=== PATIENT | male | born 1950 | race Caucasian/White ===

== ENCOUNTER 2017-02-23 19:17 | Emergency (ER) | payer MEDICARE, MEDICAID ==
[~2017-02-23] VITALS: Ht 177.8 cm; Wt 124.0 kg
[2017-02-23 19:30] VITALS: Ht 177.8 cm; Wt 124.0 kg
[2017-02-23] MEDS ORDERED: ONDANSETRON (ODT) 4 MG TAB ODT STA (20:48)
[2017-02-23] MEDS ORDERED: HYDROCODONE/APAP (5/325) TAB PO ONE (21:00)
--- NOTE | 2017-02-23 22:05 | RADRPT ---
PROCEDURE: CT Brain without contrast. CLINICAL INDICATION: Headache TECHNIQUE: A CT of the brain was performed on a multidetector CT scanner utilizing axial sections from the skull base through the vertex without contrast. Images were reviewed on a high-resolution [employer] workstation. Exam CTDI = 43.38 mGy and the DLP = 720.23 mGy-cm. One or more of the following dose reduction techniques were used: Automated exposure control Adjustment of the mA and/or kV according to patient size. Use of iterative reconstruction technique. COMPARISON: None available FINDINGS: Mild diffuse cerebral and cerebellar atrophy with a slight central predominance is present. There i s proportionate dilatation of the ventricular system and sulci in a symmetric fashion. There is prom inence of the extraaxial spaces secondary to atrophy. There is no evidence of intracranial hemorrhag e, mass effect or midline shift. No abnormal intra-axial or extra-axial fluid collections are seen. The density of the brain is normal and the reilly/white matter differentiation is well preserved. M ild patchy diffuse deep white matter microangiopathic ischemic change is seen. The osseous struct ures are unremarkable. Paranasal sinuses are clear. IMPRESSION: 1. No intracranial hemorrhage, mass effect or midline shift. 2. Mild generalized atrophy with slight central predominance. Mild microangiopathic ischemic magdaleno e. RPTAT: HHO .Gayle Gómez MD, Date Time Electronically viewed and signed by .Gayle Gómez MD, on 02/23/2017 22:05 .O/
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
[2017-02-23] MEDS ORDERED: NAPR-260 PO (22:20)
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
== END 2017-02-23 22:26 | disposition home or self-care (01) ==
LOC: FTE 19:17
DX: S19.9XXA Unspecified injury of neck, initial encounter (principal); R51 Headache; V49.40XA Driver injured in collision with unspecified motor vehicles in traffic accident, initial encounter
CPT/HCPCS: 70450; 72125